=== PATIENT | female | born 1950 | race Hispanic/Latino ===

== ENCOUNTER 2024-04-30 15:03 | Emergency (ER) | payer OTHER ==
[~2024-04-30] VITALS: Ht 152.4 cm; Wt 49.9 kg
[~2024-04-30 15:03] MED LIST: FERR324T4 PO; GABA-531 PO; LISI40TA9 PO; METF500T3 PO; NITR100C4 PO; TRAM50TA4 PO
[2024-04-30 15:30] LABS: BASOPHILS # (AUTO) 0.08 K/uL (0.00-0.20); BASOPHILS % (AUTO) 0.7 % (0.0-5.0); EOSINOPHILS # (AUTO) 0.26 K/uL (0.00-0.70); EOSINOPHILS % (AUTO) 2.3 % (0.0-8.0); HEMATOCRIT 31.6 % (36-48); IMMATURE GRANULOCYTE ABSOLUTE 0.05 K/uL (0-1); LYMPHOCYTES # (AUTO) 2.1 K/uL (1.0-4.8); LYMPHOCYTES % (AUTO) 18.8 % (21.0-51.0); MEAN CORPUSCULAR HEMOGLOBIN 29.9 pg (27.0-33.0); MEAN CORPUSCULAR HGB CONC 34.2 g/dL (32.0-36.0); MEAN CORPUSCULAR VOLUME 87.5 fL (79-99); MONOCYTES # (AUTO) 1.1 K/uL (0.1-1.0); MONOCYTES % (AUTO) 9.9 % (3.0-13.0); NEUTROPHILS # (AUTO) 7.7 K/uL (1.8-7.7); NEUTROPHILS % (AUTO) 67.9 % (40.0-77.0); PLATELET COUNT (AUTO) 369 K/uL (130-400); RED BLOOD CELL COUNT(AUTO) 3.61 MIL/uL (4.00-5.50); RED CELL DISTRIBUTION WIDTH 12.8 % (11.0-15.5); WHITE BLOOD COUNT (AUTO) 11.4 K/uL (4.8-10.8)
[2024-04-30 15:36] LABS: CREATININE 0.9 mg/dL (0.5-1.0); POTASSIUM 3.3 mmol/L (3.5-5.1)
[2024-04-30 16:40] VITALS: BP 143/65; PULSE 71; RESP 18; O2SAT 99
[2024-04-30 16:58] LABS: APPEARANCE,URINE CLOUDY (CLEAR); BILIRUBIN,URINE NEGATIVE (NEGATIVE); COLOR,URINE COLORLESS (YELLOW); GLUCOSE, URINE (UA) NEGATIVE (NEGATIVE); KETONES,URINE NEGATIVE (NEGATIVE); LEUKOCYTE ESTERASE ,URINE 500 Leu/uL (NEGATIVE); NITRATE,URINE NEGATIVE (NEGATIVE); PH,URINE 5.5 (5.0-8.0); PROTEIN,URINE 70 mg/dL (NEGATIVE); UROBILINOGEN,URINE 0.2 mg/dL (0.2-1.0)
[2024-04-30 17:01] LABS: ADD UA MICROSCOPIC YES
[2024-04-30 17:02] LABS: BACTERIA,URINE MANY /HPF (None Seen); SQUAMOUS EPITHELIAL CELL,UR RARE /HPF (0-2); UNCLASSIFIED CRYSTAL 10 /HPF (None Seen); WBC CLUMP MANY /HPF (0-1); WBC,URINE TNTC /HPF (0-1); YEAST,URINE BUDDING FEW /HPF (None Seen)
[2024-04-30] MEDS: CEFTRIAXONE 1G VIAL IVPB ONE (17:20)
[2024-04-30] MEDS ORDERED: CEPH500B PO (17:24)
== END 2024-04-30 17:30 | disposition home or self-care (01) ==
LOC: EDH 15:03
DX: N39.0 Urinary tract infection, site not specified (principal); E11.65 Type 2 diabetes mellitus with hyperglycemia; I10 Essential (primary) hypertension; E78.00 Pure hypercholesterolemia, unspecified; M19.90 Unspecified osteoarthritis, unspecified site; Z79.84 Long term (current) use of oral hypoglycemic drugs; Z79.899 Other long term (current) drug therapy
CPT/HCPCS: 36415; 80048; 81001; 82948; 85025; 87077; 87088; 87186; J0696

== ENCOUNTER → 2025-02-02 | Outpatient (CLI) | payer OTHER ==
[~2025-02-02] MED LIST changes: +AMLO-257 PO; +CEFD300C3 PO; +DOXY-466 PO; +DULO30CA52 PO; -FERR324T4 PO; +GABA-529 PO; -GABA-531 PO; +HYDR-4377 PO; -LISI40TA9 PO; +MELO-106 PO; -METF500T3 PO; +METO25 PO; -NITR100C4 PO; -TRAM50TA4 PO
[2025-02-02] MEDS: REGADENOSON 0.4 MG/5 ML PF SYG IVP ONE (13:20)
== END | disposition home or self-care (01) ==
LOC: SHCH 07:36
PROVIDERS: ATTEND Internal Medicine Cardiovascular Disease
DX: I20.89 Other forms of angina pectoris (principal); R06.00 Dyspnea, unspecified
CPT/HCPCS: 78452; 93017; J2785; A9500 ×2

== ENCOUNTER → 2025-02-18 | Outpatient (CLI) | payer OTHER | END | disposition home or self-care (01) | LOC: SHCH 14:41 | PROVIDERS: ATTEND Internal Medicine Cardiovascular Disease | DX: I08.0 Rheumatic disorders of both mitral and aortic valves (principal); I20.9 Angina pectoris, unspecified | CPT/HCPCS: 93306 ==

== ENCOUNTER → 2025-11-08 | Outpatient (CLI) | payer OTHER ==
[~2025-11-08] MED LIST changes: +LIDOCAINE HCL 1% 20 ML VIAL MISC ONE
[2025-11-08 08:51] LABS: INR <= 0.93 (0.85-1.15)
--- NOTE | 2025-11-08 09:25 | NUR ---
U/S GD LT THRYOID NODULE FNA PROCEDURE PERFORMED BY DR TAYLOR. PUNCTURE SITE LT NECK AND PATIENT TOLERATED PROCEDURE WELL. SPECIMEN X 4 COLLECTED BY [place]. END OF PROCEDURE AT 0905. BIOPSY NEEDLE REMOVED AND DRESSING APPLIED. NO BLEEDING NOTED. DISCHARGE INSTRUCTIONS GIVEN TO PATIENT AND VERBALIZED UNDERSTANDING. DISCHARGED VIA WHEELCHAIR AAO X3 WITH NO C/O PAIN.
--- NOTE | 2025-11-08 12:31 | HMCIMG ---
PROCEDURE: Ultrasound-guided left thyroid nodule fine needle aspiration; dated 11/08/2025 INDICATION: Left thyroid nodule. STAFF: Reynold ANESTHESIA: Local, 1% lidocaine plain FINDINGS: Informed consent was obtained. Patient was placed in the supine position prepped and draped in the usual sterile fashion. Under ultrasound guidance, the left thyroid nodule was localized. Local anesthetic was applied using 1% plain lidocaine. The nodule appears heterogeneously heterogeneous. Fine needle aspiration using coaxial technique with an 18 gauge introducer needle and a 22-gauge aspiration needle was performed under ultrasound guidance. 4 passes were made and reviewed directly by the rad technologist, who confirmed adequate cytology. The patient tolerated the procedure well. SPECIMEN: 4 FNA passes, reviewed by cinetechnician COMPLICATIONS: None. EBL: Minimal. IMPRESSION: Status post ultrasound-guided left thyroid nodule fine needle aspiration, sent to pathology for further evaluation.
== END | disposition home or self-care (01) ==
LOC: RAH 07:41
PROVIDERS: ATTEND Internal Medicine
DX: E04.1 Nontoxic single thyroid nodule (principal); E11.9 Type 2 diabetes mellitus without complications; E11.65 Type 2 diabetes mellitus with hyperglycemia; I10 Essential (primary) hypertension; E78.5 Hyperlipidemia, unspecified; Z79.01 Long term (current) use of anticoagulants; Z79.4 Long term (current) use of insulin; Z79.899 Other long term (current) drug therapy
CPT/HCPCS: 10005; 85610; 85730; 36415; 88173; 88305; J2003; 76942